=== PATIENT | female | born 1960 | race Caucasian/White ===

== ENCOUNTER 2021-03-12 17:42 | Inpatient (IN) | payer MEDICAID ==
[~2021-03-12] VITALS: Ht 160 cm; Wt 60.3 kg
--- NOTE | 2021-03-12 18:00 | NUR ---
PT AMBULATES TO ROOM WITH STEADY GAIT.
--- NOTE | 2021-03-12 18:12 | NUR ---
PT PLACED IN GOWN IN [facility]. ERP AT BS. PT EDUCATED ON ER PROCESS AND POC AND VERBALIZES UNDERSTANDING. PT HAS CALL LIGHT WITHIN REACH. AWAITING ORDERS AT THIS TIME. PT ATTACHED TO VS AND SOFTWARE CONFIGURATION SPECIALIST.
[2021-03-12] MEDS ORDERED: SODIUM CHLORIDE FLUSH 10ML SYR IVF ONE (19:00)
[2021-03-12 19:12] LABS: BASOPHILS % (AUTO) 1 % (0-1); EOSINOPHILS % (AUTO) 1 % (1-7); LYMPHOCYTES % (AUTO) 14 % (22-44); MEAN CORPUSCULAR HEMOGLOBIN 31.4 pg (27.0-34.8); MEAN CORPUSCULAR HGB CONC 33.1 g/dL (32.4-35.8); MEAN PLATELET VOLUME 7.3 fL (7.4-10.4); MONOCYTES % (AUTO) 8 % (2-9); NEUTROPHILS % (AUTO) 77 % (42-75); PLATELET COUNT 231 x10^3/uL (130-400); RED BLOOD COUNT 5.24 x10^6/uL (3.82-5.3); RED CELL DISTRIBUTION WIDTH 15.3 % (9.6-15.2)
[2021-03-12 19:17] LABS: ALANINE AMINOTRANSFERASE 41 U/L (12-78); ALBUMIN 2.9 g/dL (3.4-5.0); CALCIUM 8.2 mg/dL (8.5-10.1); CREATININE 0.89 mg/dL (0.55-1.02)
[2021-03-12 19:21] LABS: ALKALINE PHOSPHATASE 56 U/L (45-117); BILIRUBIN,TOTAL 0.6 mg/dL (0.2-1.0); TOTAL PROTEIN 5.9 g/dL (6.4-8.2); TROPONIN I < 0.015 ng/mL (0.000-0.045)
[2021-03-12 19:22] LABS: ANION GAP 3 mmol/L (5-15); CHLORIDE 106 mmol/L (98-107)
--- NOTE | 2021-03-12 19:54 | NUR ---
PT AMBULATES BACK TO [facility] FROM RESTROOM AT THIS TIME WITH STEADY GAIT.
--- NOTE | 2021-03-12 20:00 | NUR ---
REPORT OF PT TO EDWIGE NEVILLE. ALL QUESTIONS ANSWERED.
[2021-03-12] MEDS ORDERED: FUROSEMIDE 40 MG/4 ML ONE (21:17)
[2021-03-12] MEDS ORDERED: NITROGLYCERIN OINT 2%, 1GM TP ONE ×2 (21:17→21:30)
[2021-03-12] MEDS ORDERED: ASPIRIN 81 MG TABLET CHEW ONE (21:18)
[2021-03-12 21:19] LABS: MICROSCOPIC AUTO
[2021-03-12] MEDS ORDERED: FUROSEMIDE 40 MG/4 ML IVPush ONE (21:30)
[2021-03-12] MEDS ORDERED: ASPIRIN 81 MG TABLET CHEW PO ONE (21:30)
[2021-03-12] MEDS ORDERED: OMNIPAQUE 350 MG/ML, 75ML BOTTLE ONE (21:46)
[2021-03-12 22:50] VITALS: BP 137/90
[2021-03-13] MEDS ORDERED: BISACODYL 10 MG SUPP PR PRN
[2021-03-13] MEDS ORDERED: POLYETHYLENE GLYCOL 17 GM PACKET PO PRN
[2021-03-13] MEDS ORDERED: ONDANSETRON ODT 4 MG PO PRN
[2021-03-13 03:26] VITALS: BP 116/74
[2021-03-13 04:56] LABS: BASOPHILS % (AUTO) 1 % (0-1); EOSINOPHILS % (AUTO) 1 % (1-7); LYMPHOCYTES % (AUTO) 15 % (22-44); MEAN CORPUSCULAR HEMOGLOBIN 31.7 pg (27.0-34.8); MEAN CORPUSCULAR HGB CONC 33.3 g/dL (32.4-35.8); MEAN PLATELET VOLUME 7.1 fL (7.4-10.4); MONOCYTES % (AUTO) 10 % (2-9); NEUTROPHILS % (AUTO) 73 % (42-75); PLATELET COUNT 231 x10^3/uL (130-400); RED BLOOD COUNT 4.92 x10^6/uL (3.82-5.3); RED CELL DISTRIBUTION WIDTH 15.5 % (9.6-15.2)
[2021-03-13 05:07] LABS: ANION GAP 0 mmol/L (5-15); CALCIUM 7.8 mg/dL (8.5-10.1); CHLORIDE 105 mmol/L (98-107); CREATININE 0.83 mg/dL (0.55-1.02); TRIGLYCERIDES 83 mg/dL (50-200)
[2021-03-13 05:08] LABS: CHOLESTEROL, TOTAL 145 mg/dL (140-239); VLDL CHOLESTEROL 17 mg/dL (0-25)
[2021-03-13 05:09] LABS: CHOL/HDL RATIO 3.9; HDL CHOL % 26 % (28-40); HDL CHOLESTEROL (DIRECT) 37 mg/dL (40-60); LDL CHOLESTEROL,CALCULATED 91 mg/dL (54-169); LDL/HDL RATIO 2.5 (0.5-3.0)
[2021-03-13] MEDS: CARVEDILOL 3.125 MG TABLET PO SCH ×2 (06:17→17:35)
[2021-03-13] MEDS: FUROSEMIDE 80 MG TABLET PO SCH ×2 (06:17→17:36)
[2021-03-13 07:26] VITALS: BP 97/63
[2021-03-13] MEDS ORDERED: FUROSEMIDE 40 MG/4 ML IV SCH (07:30)
[2021-03-13] MEDS: LISINOPRIL 5 MG TABLET PO SCH (09:00)
[2021-03-13] MEDS: SENNA/DOCUSATE TABLET PO SCH (09:00)
[2021-03-13] MEDS: SODIUM CHLORIDE FLUSH 10ML SYR IVF SCH ×3 (09:00→20:42)
[2021-03-13 15:18] VITALS: BP 108/69
[2021-03-13 17:36] VITALS: BP 124/80
[2021-03-13] MEDS: ACETAMINOPHEN 325 MG TABLET PO PRN (17:47)
[2021-03-13 18:56] VITALS: BP 101/60
[2021-03-13] MEDS: APIXABAN 5 MG TABLET PO SCH (20:42)
[2021-03-14 01:15] VITALS: BP 99/60
[2021-03-14 05:44] LABS: BASOPHILS % (AUTO) 1 % (0-1); EOSINOPHILS % (AUTO) 1 % (1-7); LYMPHOCYTES % (AUTO) 16 % (22-44); MEAN CORPUSCULAR HEMOGLOBIN 31.5 pg (27.0-34.8); MEAN CORPUSCULAR HGB CONC 32.8 g/dL (32.4-35.8); MEAN PLATELET VOLUME 7.1 fL (7.4-10.4); MONOCYTES % (AUTO) 10 % (2-9); NEUTROPHILS % (AUTO) 72 % (42-75); PLATELET COUNT 216 x10^3/uL (130-400); RED BLOOD COUNT 4.85 x10^6/uL (3.82-5.3); RED CELL DISTRIBUTION WIDTH 15.4 % (9.6-15.2)
[2021-03-14 05:57] LABS: ALANINE AMINOTRANSFERASE 34 U/L (12-78); ALBUMIN 2.5 g/dL (3.4-5.0); ANION GAP < 1 mmol/L (5-15); CALCIUM 7.9 mg/dL (8.5-10.1); CHLORIDE 104 mmol/L (98-107)
[2021-03-14 05:59] LABS: ALKALINE PHOSPHATASE 46 U/L (45-117); BILIRUBIN,TOTAL 0.4 mg/dL (0.2-1.0); CREATININE 0.86 mg/dL (0.55-1.02); TOTAL PROTEIN 5.4 g/dL (6.4-8.2)
[2021-03-14] MEDS: CARVEDILOL 3.125 MG TABLET PO SCH ×2 (06:08→18:10)
[2021-03-14 07:29] VITALS: BP 107/69
[2021-03-14] MEDS ORDERED: CYCLOBENZAPRINE 10 MG TABLET PO PRN (08:30)
[2021-03-14] MEDS: SENNA/DOCUSATE TABLET PO SCH (09:00)
[2021-03-14] MEDS: FUROSEMIDE 40 MG/4 ML IV SCH ×2 (09:02→18:11)
[2021-03-14] MEDS: CEFTRIAXONE 2 GM in DEXTROSE 5% 50 ML IVPB SCH (09:02)
[2021-03-14] MEDS: SODIUM CHLORIDE FLUSH 10ML SYR IVF SCH ×2 (09:02→22:03)
[2021-03-14] MEDS: LISINOPRIL 5 MG TABLET PO SCH (09:03)
[2021-03-14] MEDS: APIXABAN 5 MG TABLET PO SCH ×2 (09:03→22:03)
[2021-03-14 15:27] VITALS: BP 122/78
[2021-03-14 18:07] VITALS: BP 130/83
[2021-03-14] MEDS: METOLAZONE 2.5 MG TABLET PO SCH (18:09)
[2021-03-14] MEDS: SPIRONOLACTONE 25 MG TABLET PO SCH (18:10)
[2021-03-14 19:26] VITALS: BP 110/75
[2021-03-15 02:17] VITALS: BP 113/75
[2021-03-15 06:40] VITALS: BP 122/77
[2021-03-15] MEDS: CARVEDILOL 3.125 MG TABLET PO SCH (06:43)
[2021-03-15] MEDS: FUROSEMIDE 40 MG/4 ML IV SCH ×2 (07:30→07:46)
[2021-03-15] MEDS: METOLAZONE 2.5 MG TABLET PO SCH ×2 (07:30→07:46)
[2021-03-15] MEDS: CEFTRIAXONE 2 GM in DEXTROSE 5% 50 ML IVPB SCH (07:46)
[2021-03-15] MEDS: SPIRONOLACTONE 25 MG TABLET PO SCH (08:00)
[2021-03-15] MEDS: LISINOPRIL 5 MG TABLET PO SCH (08:00)
[2021-03-15] MEDS: SENNA/DOCUSATE TABLET PO SCH (08:01)
[2021-03-15] MEDS: APIXABAN 5 MG TABLET PO SCH ×2 (08:11→21:35)
[2021-03-15] MEDS: SODIUM CHLORIDE FLUSH 10ML SYR IVF SCH ×2 (08:12→21:36)
[2021-03-15] MEDS: ACETAMINOPHEN 325 MG TABLET PO PRN (08:54)
[2021-03-15 09:10] VITALS: BP 122/77
[2021-03-15] MEDS ORDERED: METOLAZONE 2.5 MG TABLET PO ONE (10:00)
[2021-03-15] MEDS ORDERED: FUROSEMIDE 20 MG/2 ML IV ONE (10:00)
[2021-03-15 13:15] VITALS: BP 97/59
[2021-03-15 21:32] VITALS: BP 126/83
[2021-03-16 02:28] VITALS: BP 121/79
[2021-03-16] MEDS: ACETAMINOPHEN 325 MG TABLET PO PRN (06:10)
[2021-03-16 06:34] VITALS: BP 118/73
[2021-03-16] MEDS ORDERED: FUROSEMIDE 20 MG/2 ML IV SCH (07:30)
[2021-03-16] MEDS ORDERED: METOLAZONE 2.5 MG TABLET PO SCH (07:30)
[2021-03-16] MEDS: APIXABAN 5 MG TABLET PO SCH (08:15)
[2021-03-16] MEDS: LISINOPRIL 5 MG TABLET PO SCH (08:15)
[2021-03-16] MEDS: CEFTRIAXONE 2 GM in DEXTROSE 5% 50 ML IVPB SCH (08:15)
[2021-03-16] MEDS: SENNA/DOCUSATE TABLET PO SCH (08:16)
[2021-03-16] MEDS: SODIUM CHLORIDE FLUSH 10ML SYR IVF SCH (08:16)
[2021-03-16] MEDS ORDERED: FURO-93 PO (11:44)
[2021-03-16] MEDS ORDERED: APIX5TAB PO (11:44)
[2021-03-16] MEDS ORDERED: POTA10CA PO (11:44)
[2021-03-16] MEDS ORDERED: METO2.5T PO (11:44)
[2021-03-16] MEDS ORDERED: CEFD300C37 PO (11:46)
[2021-03-16 12:49] VITALS: BP 108/70
== END 2021-03-16 15:07 | disposition home or self-care (01) | DRG 291 ==
LOC: ED 21:09 → EDIP 21:15 → ED 21:27 → 5SO 22:35
PROVIDERS: ADMIT Internal Medicine; ATTEND Hospitalist
DX: I50.9 Heart failure, unspecified (principal); J96.01 Acute respiratory failure with hypoxia; I48.0 Paroxysmal atrial fibrillation; F17.210 Nicotine dependence, cigarettes, uncomplicated; Z66 Do not resuscitate; Z82.5 Family history of asthma and other chronic lower respiratory diseases; Z85.3 Personal history of malignant neoplasm of breast; Z92.21 Personal history of antineoplastic chemotherapy; Z92.3 Personal history of irradiation; B96.20 Unspecified Escherichia coli [E. coli] as the cause of diseases classified elsewhere; R73.9 Hyperglycemia, unspecified
CPT/HCPCS: 36415; 71045; 71275; 76700; 80048; 80053; 80061; 81001; 83036; 83880; 84484; 85025; 87040; 87077; 87086; 87186; 93005; 93306; 93970; G0378; J0696; J1940; Q9967

== ENCOUNTER 2021-04-24 11:52 | Outpatient (CLI) | payer MEDICAID ==
[~2021-04-24 11:52] MED LIST: APIX5TAB PO; CEFD300C37 PO; FURO-93 PO; METO2.5T PO; POTA10CA PO; REGADENOSON 0.4 MG/5 ML SYRINGE ONE
== END 2021-04-24 23:59 | disposition home or self-care (01) ==
LOC: CFH 11:52
PROVIDERS: ATTEND Internal Medicine Clinical Cardiac Electrophysiology
DX: I50.32 Chronic diastolic (congestive) heart failure (principal); I48.0 Paroxysmal atrial fibrillation
CPT/HCPCS: 78452; 93017; A9502; J2785